=== PATIENT | female | born 1975 | race Caucasian/White ===

== ENCOUNTER 2023-05-31 20:00 | Emergency (ER) | payer OTHER ==
[2023-05-31 20:04] VITALS: BP 144/89; PULSE 98; RESP 18; TEMP 98.3; BMI 32.8
[2023-05-31] MEDS ORDERED: ACETAMINOPHEN 500 MG TABLET (FP) PO ONE (21:45)
[2023-05-31] MEDS ORDERED: IBUPROFEN 600 MG TABLET (FP) PO ONE ×2 (21:45→21:47)
[2023-05-31] MEDS ORDERED: AMOX TR/POT CLAV 500MG/125MG TABLETS (FP) PO ONE (21:45)
[2023-05-31] MEDS ORDERED: AMOX TR/POT CLAV 500MG/125MG TABLETS (FP) ONE ×2 (21:47→21:49)
[2023-05-31] MEDS ORDERED: ACETAMINOPHEN 500 MG TABLET (FP) ONE (21:48)
== END 2023-05-31 21:55 | disposition home or self-care (01) ==
LOC: JERFT 20:00
DX: K08.89 Other specified disorders of teeth and supporting structures (principal); R22.0 Localized swelling, mass and lump, head
CPT/HCPCS: 99283-25